=== PATIENT | male | born 1965 | race Caucasian/White ===

== ENCOUNTER 2020-02-14 19:03 | Emergency (ER) | payer OTHER, SELFPAY ==
[2020-02-14 19:19] VITALS: BP 143/107; PULSE 117; RESP 16; TEMP 36.9; O2SAT 97; BMI 34.2
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
[2020-02-14 19:59] VITALS: BP 143/107; PULSE 117; RESP 16; TEMP 36.9; O2SAT 97
== END 2020-02-14 20:01 | disposition home or self-care (01) ==
PROVIDERS: Emergency Provider Emergency Medicine
DX: S81.831A Puncture wound without foreign body, right lower leg, initial encounter (principal); S80.01XA Contusion of right knee, initial encounter; S80.02XA Contusion of left knee, initial encounter; W22.8XXA Striking against or struck by other objects, initial encounter; Y92.69 Other specified industrial and construction area as the place of occurrence of the external cause; Y99.0 Civilian activity done for income or pay; Z23 Encounter for immunization
CPT/HCPCS: 90471; 90715; 99201

== ENCOUNTER 2021-02-26 08:51 | Emergency (ER) | payer OTHER, SELFPAY ==
[2021-02-26 09:00] VITALS: BP 123/93; PULSE 91; RESP 20; TEMP 36.6; O2SAT 96; BMI 33.2
[2021-02-26 09:13] VITALS: BP 123/93; PULSE 91; RESP 19; TEMP 36.6
[2021-02-26 09:39] LABS: Influenza A, PCR Not Detected (NotDetected); Influenza B, PCR Not Detected (NotDetected)
--- NOTE | 2021-02-26 09:44 | HMH.EDUTC ---
[facility] [place] Clinical Impression: COVID-19 Disposition: Home, Self-Care Condition on Discharge: Good Instructions: DI for COVID-19 (Suspected or Confirmed ), Preventing the Spread of Coronavirus Discharge Instructions Additional Instructions: Drink plenty of fluids. Take tylenol or ibuprofen for pain or fever. Take the medications as directed. Follow up with your regular doctor. GO TO THE ER FOR ANY WORSENING SYMPTOMS Quarantine until you know the results of your covid-19 test. If it is positive, the health department should call you and give you further instructions about your length of Quarantine and other things. Notify your school or workplace of your results and follow their instructions regarding return to work/school. Prescriptions: Benzonatate [Tessalon Perle 100mg Cap] 100 mg PO TIDP PRN #30 cap PRN Reason: Cough Transmission Status: Received by [facility] #[id number] Ondansetron [Zofran 4mg ODT] 4 mg PO DAILYP PRN #12 tab PRN Reason: Nausea Transmission Status: Received by [facility] #[id number] Referrals: Provider,Referral, [Primary Care Provider] - Forms: Work/School Release Time of Disposition: 10:11 Medical Decision Making - Medical Records Medical records reviewed: No: I reviewed the patient's medical records. - Jose Inquiry Pt receiving controlled substance: No Vital Signs: 02/26/21 09:00 02/26/21 09:13 Temperature 98 F 98 F Temperature Source Oral Pulse Rate 91 H Pulse Rate [Left] 91 H Respiratory Rate 20 19 Blood Pressure 123/93 H Blood Pressure [Right Arm] 123/93 H Blood Pressure Mean [Right Arm] 103 02 Sat by Pulse Oximetry 96 - Lab Data Lab results reviewed: Yes: I reviewed the patient's lab results. Lab Results 02/26/21 09:03: SARS-CoV-2 (PCR) Detected A, Influenza A Untype (PCR) Not detected, Influenza Type B (PCR) Not detected [facility] [place] HPI - General Stated complaint: Covid test-Rapid (spoke with lab) Time Seen by Provider: 02/26/21 09:15 Mode of Arrival: Ambulatory Source of Information: Patient Limitations: No Limitations Description of Symptoms (Recalled from Triage Doc. by RN): pt c/o loss of taste, dry mouth, sore throat and body aches. HEENT Symptoms (Recalled from RN notes): Yes (loss of taste and sore throat) Resp Symptoms (Recalled from RN notes): No Skin Symptoms (Recalled from RN notes): No MS Symptoms (Recalled from RN notes): No Functional Status (Recalled from RN notes): body aches - History of Present Illness Provider Complaint: He states that for the past 2 days he has not been feeling well. His symptoms have progressively got worse since they began. Last night, he has chilling and felt like he had a fever. He has had a cough and sinus congestion. He has a scratchy sore throat. The symptom that he has the biggest concern about is that he has no sense of smell and his sense of taste is very reduced. He denies any shortness of breath and chest pain. - Related Data Previous Rx's Medication Instructions Recorded Ibuprofen [Ibuprofen 600mg 600 mg PO Q6HP PRN #30 tab 02/14/20 Tablet] Mupirocin [Bactroban 2% Ointment 1 applicatio TP TID 7 Days #1 tube 02/14/20 22gm tube] cephALEXin [Keflex 500mg Cap] 500 mg PO Q6H 10 Days #40 cap 02/14/20 Benzonatate [Tessalon Perle 100mg 100 mg PO TIDP PRN #30 cap 02/26/21 Cap] Ondansetron [Zofran 4mg ODT] 4 mg PO DAILYP PRN #12 tab 02/26/21 Allergies Allergy/AdvReac Type Severity Reaction Status Date / Time No Known Allergies Allergy Verified 02/14/20 19:29 - Worker's Comp Is this a Worker's Comp case?: No [facility] History - Hepatitis A Screen Drug use history?: No High risk sexual behaviors?: No History of sexually transmitted infection?: No Currently employed?: No Childcare worker?: No Do you have indoor plumbing?: Yes Do you have electricity?: Yes Attestation statement:: This patient has been screened for Hepatitis A r
[2021-02-26 10:04] LABS: Coronavirus 19, PCR Detected (NotDetected)
== END 2021-02-26 10:15 | disposition home or self-care (01) ==
PROVIDERS: Emergency Provider Nurse Practitioner Family
DX: U07.1 COVID-19 (principal)
CPT/HCPCS: 99202; G0463; U0003

== ENCOUNTER 2023-12-29 21:36 | Emergency (ER) | payer SELFPAY ==
[2023-12-29 21:42] VITALS: BP 125/74; PULSE 131; RESP 19; TEMP 36.8; O2SAT 98; BMI 35.7
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
[2023-12-29] MEDS: ACETAMINOPHEN 500MG TAB 1000 MG PO (22:02)
[2023-12-29] MEDS: IBUPROFEN 600 MG TABLET PO (22:05)
[2023-12-29 22:12] VITALS: BP 132/78; PULSE 73; RESP 15; TEMP 36.8; O2SAT 98
== END 2023-12-29 22:18 | disposition home or self-care (01) ==
PROVIDERS: Emergency Provider Emergency Medicine
DX: R10.2 Pelvic and perineal pain (principal); M79.652 Pain in left thigh; N50.811 Right testicular pain; Y04.2XXA Assault by strike against or bumped into by another person, initial encounter
CPT/HCPCS: 99283

== ENCOUNTER 2024-06-26 00:57 | Emergency (ER) | payer SELFPAY ==
[2024-06-26 00:58] VITALS: BP 148/87; PULSE 107; RESP 18; TEMP 36.6; O2SAT 96; BMI 37.2
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
--- NOTE | 2024-06-26 01:06 | XR_ITS ---
PROCEDURE INFORMATION: Exam: XR Right Foot Exam date and time: 06/26/2024 1:13 AM Age: 59 years old Clinical indication: Pain and injury or trauma; Fall; Work related; Blunt trauma; Heel and foot; Right; Foot and heel; Injury details: Jumped down off a fence, felt heel pop ; Additional info: Fall, heel pain TECHNIQUE: Imaging protocol: Radiologic exam of the right foot. Views: 3 or more views. COMPARISON: CR XR ANKLE RT MIN 3V 06/26/2024 1:13 AM FINDINGS: Bones/joints: Multiple views were obtained. The osseous structures appear intact with no evidence of acute fracture, dislocation, or malalignment. Degenerative changes are noted, consistent with age-related wear and tear. Joint spaces are generally preserved. No abnormal bone density or destructive lesions are noted. There is a hallux valgus deformity. Soft tissues: Soft tissue swelling is observed, warranting further clinical correlation. IMPRESSION: At the time of imaging, the skeletal radiograph demonstrates no acute osseous abnormalities but shows signs of degenerative changes and soft tissue swelling.
--- NOTE | 2024-06-26 01:06 | XR_ITS ---
PROCEDURE INFORMATION: Exam: XR Right Ankle Exam date and time: 06/26/2024 1:13 AM Age: 59 years old Clinical indication: Pain and injury or trauma; Fall; Work related; Blunt trauma; Ankle; Right; Injury details: Jump down from fence, felt pop; Additional info: Fall, heel pain TECHNIQUE: Imaging protocol: Radiologic exam of the right ankle. Views: 3 or more views. COMPARISON: CR XR ANKLE RT MIN 3V 06/26/2024 1:13 AM FINDINGS: Bones/joints: Multiple views were obtained. The osseous structures appear intact with no evidence of acute fracture, dislocation, or malalignment. Joint spaces are preserved. No abnormal bone density or destructive lesions are noted. Soft tissues: Soft tissue swelling is observed, and further clinical correlation is advised. IMPRESSION: At the time of imaging, the skeletal radiograph demonstrates no acute osseous abnormalities but does show soft tissue swelling.
[2024-06-26 01:30] VITALS: BP 125/82; PULSE 91; O2SAT 96
[2024-06-26 01:45] VITALS: BP 125/82; PULSE 89; O2SAT 97
[2024-06-26 02:17] VITALS: BP 132/88; PULSE 87; RESP 16; TEMP 36.6; O2SAT 96
[2024-06-26] MEDS: TET/DIPHTH/PERT-ADULT 0.5ML SYRINGE 0.5 ML IM (02:20)
== END 2024-06-26 02:19 | disposition home or self-care (01) ==
PROVIDERS: Emergency Provider Emergency Medicine
DX: S61.432A Puncture wound without foreign body of left hand, initial encounter (principal); M79.671 Pain in right foot; M79.642 Pain in left hand; Z23 Encounter for immunization; X50.9XXA Other and unspecified overexertion or strenuous movements or postures, initial encounter; Y93.89 Activity, other specified; Y92.89 Other specified places as the place of occurrence of the external cause
CPT/HCPCS: 73610; 73630; 90471; 90715; 99283

== ENCOUNTER 2024-09-05 22:07 | Emergency (ER) | payer OTHER, SELFPAY ==
--- NOTE | 2024-09-05 22:11 | ECG_ITS ---
APPROVED REPORT Exam: Resting ECG HR:102 bpm ECG Measurements Heart Rate [address] 174 P 49 QRSd 89 QRS 64 QT 309 T -26 QTc 367 Conclusion SINUS TACHYCARDIA NONSPECIFIC T-WAVE ABNORMALITY ABNORMAL ECG UNCONFIRMED REPORT Electronically signed by : PHU SALES, 09/06/2024 02:22:56
[2024-09-05 22:15] VITALS: BP 144/85; PULSE 110; RESP 28; TEMP 36.9; O2SAT 98; BMI 37.2
--- NOTE | 2024-09-05 22:15 | CT_ITS ---
PROCEDURE INFORMATION: Exam: CTA Head With Contrast, Arteriography Exam date and time: 09/05/2024 10:26 PM Age: 59 years old Clinical indication: Stroke-like symptoms; Speech disturbance; Additional info: Chest pressure, difficulty speaking TECHNIQUE: Imaging protocol: Computed tomographic angiography of the head with contrast. Exam focused on the arteries. 3D rendering (Not supervised by radiologist): MIP and/or 3D reconstructed images were created by the technologist. Radiation optimization: All CT scans at this facility use at least one of these dose optimization techniques: automated exposure control; mA and/or kV adjustment per patient size (includes targeted exams where dose is matched to clinical indication); or iterative reconstruction. Contrast material: ISOVUE; Contrast volume: 80 ml; Contrast route: INTRAVENOUS (IV); COMPARISON: CT HEAD/BRAIN WO CON 09/05/2024 10:22 PM FINDINGS: ANTERIOR CIRCULATION: Right internal carotid artery: Intracranial segment is patent with no significant stenosis. No aneurysm. Right middle cerebral artery: No occlusion or significant stenosis. No aneurysm. Right anterior cerebral artery: No occlusion or significant stenosis. No aneurysm. Left internal carotid artery: Intracranial segment is patent with no significant stenosis. No aneurysm. Left middle cerebral artery: No occlusion or significant stenosis. No aneurysm. Left anterior cerebral artery: No occlusion or significant stenosis. No aneurysm. POSTERIOR CIRCULATION: Right vertebral artery: No occlusion or significant stenosis. No aneurysm. Left vertebral artery: No occlusion or significant stenosis. No aneurysm. Basilar artery: No occlusion or significant stenosis. No aneurysm. Right posterior cerebral artery: No occlusion or significant stenosis. No aneurysm. Left posterior cerebral artery: No occlusion or significant stenosis. No aneurysm. Brain: No definite mass, mass effect, or midline shift. Cerebral ventricles: No ventriculomegaly. Bones/joints: Unremarkable. No acute fracture. Soft tissues: Unremarkable. IMPRESSION: No evidence for large vessel occlusion.
--- NOTE | 2024-09-05 22:15 | CT_ITS ---
PROCEDURE INFORMATION: Exam: CTA Neck With Contrast Exam date and time: 09/05/2024 10:26 PM Age: 59 years old Clinical indication: Stroke-like symptoms; Speech disturbance; Additional info: Chest pressure, difficulty speaking TECHNIQUE: Imaging protocol: Computed tomographic angiography of the neck with contrast. Exam focused on the cervical segments of the vasculature. 3D rendering (Not supervised by radiologist): MIP and/or 3D reconstructed images were created by the technologist. Radiation optimization: All CT scans at this facility use at least one of these dose optimization techniques: automated exposure control; mA and/or kV adjustment per patient size (includes targeted exams where dose is matched to clinical indication); or iterative reconstruction. Contrast material: ISOVUE; Contrast volume: 80 ml; Contrast route: INTRAVENOUS (IV); COMPARISON: CT ANGIO NECK 09/05/2024 10:26 PM FINDINGS: Right common carotid artery: No stenosis. No dissection or occlusion. Right internal carotid artery: No stenosis of the extracranial segment. No dissection or occlusion. Right external carotid artery: No occlusion or stenosis of the origin. Left common carotid artery: No stenosis. No dissection or occlusion. Left internal carotid artery: No stenosis of the extracranial segment. No dissection or occlusion. Left external carotid artery: No occlusion or stenosis of the origin. Right vertebral artery: No stenosis. No dissection or occlusion. Left vertebral artery: No stenosis. No dissection or occlusion. Soft tissues: Normal. No significant soft tissue swelling. Bones/joints: No acute fracture. IMPRESSION: No evidence for occlusion, stenosis or dissection of the cervical vessels. REFERENCES: NASCET CRITERIA. The degree of stenosis in the cervical segment of the internal carotid artery is based on NASCET criteria. Normal is no stenosis. Mild is less than 50% stenosis. Moderate is 50-69% stenosis. Severe is 70% to 99% stenosis. Total occlusion is no detectable patent lumen.
--- NOTE | 2024-09-05 22:15 | CT_ITS ---
PROCEDURE INFORMATION: Exam: CTA Chest With Contrast Exam date and time: 09/05/2024 10:30 PM Age: 59 years old Clinical indication: Pain; Chest pressure; Additional info: Chest pressure, difficulty speaking, tachycardia TECHNIQUE: Imaging protocol: Computed tomographic angiography of the chest with contrast. Exam focused on the arteries. 3D rendering (Not supervised by radiologist): MIP and/or 3D reconstructed images were created by the technologist. Radiation optimization: All CT scans at this facility use at least one of these dose optimization techniques: automated exposure control; mA and/or kV adjustment per patient size (includes targeted exams where dose is matched to clinical indication); or iterative reconstruction. Contrast material: ISOVUE; Contrast volume: 80 ml; Contrast route: INTRAVENOUS (IV); COMPARISON: CT ANGIO NECK 09/05/2024 10:26 PM FINDINGS: Pulmonary arteries: Normal. No pulmonary emboli. Aorta: Unremarkable. No aortic aneurysm. No aortic dissection. Lungs: Benign right upper lobar calcified granuloma. No consolidation. No masses. Pleural spaces: Unremarkable. No pneumothorax. No pleural effusion. Heart: Unremarkable. No cardiomegaly. No pericardial effusion. Lymph nodes: Unremarkable. No enlarged lymph nodes. Liver: Fatty infiltration. Pancreas: Pancreatic atrophy with extensive fatty replacement of parenchyma. No ductal dilatation. Bones/joints: Unremarkable. No acute fracture. Soft tissues: Unremarkable. IMPRESSION: 1. Unremarkable study. 2. Incidental fatty liver infiltration and pancreatic atrophy.
--- NOTE | 2024-09-05 22:15 | CT_ITS ---
PROCEDURE INFORMATION: Exam: CT Head Without Contrast Exam date and time: 09/05/2024 10:22 PM Age: 59 years old Clinical indication: Stroke-like symptoms; Speech disturbance; Additional info: Chest pressure, difficulty speaking TECHNIQUE: Imaging protocol: Computed tomography of the head without contrast. Radiation optimization: All CT scans at this facility use at least one of these dose optimization techniques: automated exposure control; mA and/or kV adjustment per patient size (includes targeted exams where dose is matched to clinical indication); or iterative reconstruction. Other technique: STROKE PROTOCOL was implemented. COMPARISON: CT HEAD/BRAIN WO CON 09/05/2024 10:22 PM FINDINGS: Brain: Small old lacunar infarct right basal ganglia. No hemorrhage. Unremarkable white matter. No mass effect. Cerebral ventricles: No ventriculomegaly. Pituitary gland and sella: Negative Paranasal sinuses: Visualized sinuses are unremarkable. No fluid levels. Mastoid air cells: Visualized mastoid air cells are well aerated. Orbital cavities: Negative. Bones: Unremarkable. No acute fracture. Soft tissues: Unremarkable. Vasculature: Intracranial vascular calcifications. Intrinsically dense cerebral vessels; difficult to evaluate. IMPRESSION: 1. No evidence for intracranial hemorrhage, mass lesions or acute stroke. 2. Intracranial vascular calcifications. 3. Intrinsically dense triple-vessel; difficult to evaluate. 4. Small old lacunar infarct right basal ganglia. ASSESSMENT: ASPECTS ([place] Stroke Program Early CT Score) is 10.
--- NOTE | 2024-09-05 22:19 | PC.NURSE ---
Pt has NIH of 0 Skin pink warm and dry Resp full and easy Speech clear and appropriate. Lungs clear to anterior auscultation.
[2024-09-05] MEDS: ASPIRIN 81MG CHEWABLE TABLET 324 MG PO (22:21)
[2024-09-05 22:25] LABS: Lactate Venous 2.6 mmol/L (0.4-2.0); VBG Base Excess 2.6 mmol/L (-2.4-2.3); VBG HCO3 27.1 mmol/L (23-30); VBG Oxygen Saturation 66.2 % (50-70); VBG PCO2 43.4 mmol/L (35-51); VBG PH 7.41 mmol/L (7.31-7.41); VBG PO2 33.2 mmol/L (28-40); VBG Total CO2 28.5 mmol/L (23-27)
[2024-09-05 22:25] LABS: Basophils % 0.4 % (0.1-2.0); Eosinophils # 0.2 K/mm3 (0.0-0.4); Eosinophils % 2.7 % (0.1-12.0); Hematocrit 40.9 % (42.0-52.0); Hemoglobin 13.9 g/dL (14.1-18.0); Lymphocytes # 2.8 K/mm3 (0.7-4.5); Lymphocytes % 40.7 % (10-50); Mean Corpuscular Hemoglobin 29.4 pg (27.0-31.2); Mean Corpuscular Volume 86.5 fl (80-94); Mean Platelet Volume 10.4 fl (7.4-10.4); Monocytes # 0.5 K/mm3 (0.1-1.0); Monocytes % 6.7 % (1.7-9.3); Neutrophils # 3.3 K/mm3 (1.8-7.8); Neutrophils % 49.4 % (37.0-80.0); Platelet Count 250 K/mm3 (142-424); Red Blood Count 4.73 M/mm3 (4.60-6.20); Red Cell Distribution Width 12.9 % (11.5-17.5); White Blood Count 6.8 K/mm3 (4.8-10.8)
[2024-09-05 22:29] LABS: Albumin Level 4.7 g/dl (3.5-5.0); Chloride 105 mmol/L (98-107); Potassium 4.4 mmoL/L (3.5-5.1); Sodium 139 mmol/L (136-145)
[2024-09-05 22:32] LABS: Alanine Aminotransferase 51 U/L (12-78); Albumin/Globulin Ratio 1.7 (1.1-1.8); Alkaline Phosphatase 76 U/L (38-126); Anion Gap 10.4 mEq/L (5-15); Aspartate Amino Transferase 47 U/L (17-59); Bilirubin,Total 1.2 mg/dl (0.2-1.3); Blood Urea Nitrogen 16 mg/dl (9-20); Carbon Dioxide 28 mmol/L (22.0-30.0); Creatinine Clearance Estimated 125 mL/min (50-200); Estimated Glomerular Filt Rate 76 ml/min (>60); GFR (African American) 93 ML/MIN (>60); Globulin 2.7 g/dL (1.3-3.2); Lipase 27 U/L (23-300); Total Protein,Serum 7.4 g/dl (6.3-8.2)
[2024-09-05 22:33] LABS: Calcium 9.2 mg/dl (8.4-10.2); Glucose 120 mg/dl (74-100)
--- NOTE | 2024-09-05 22:37 | ED_ITS ---
Discharge Plan Disposition Patient Disposition: Home, Self-Care Prescriptions Prescriptions: No Action cephalexin 500 MG capsule 500 mg PO Q6H 10 Days Qty: 40 0RF mupirocin 22 GM ointment 1 applicatio TP TID 7 Days Qty: 1 0RF ibuprofen 600 MG tablet 600 mg PO Q6HP PRN (Reason: Mild Pain) Qty: 30 0RF benzonatate 100 MG capsule 100 mg PO TIDP PRN (Reason: Cough) Qty: 30 0RF ondansetron 4 MG tablet,disintegrating 4 mg PO DAILYP PRN (Reason: Nausea) Qty: 12 0RF Referrals Follow up/Referrals: Rica Pop, EMILEE [Referring] - See instructions Activity Restrictions/Add. Instructions Additional Instructions/Restrictions: Please follow-up with your primary care provider. Please return to the emergency department if you develop any new or worsening symptoms or become concerned for your health. Clinical Impressions Clinical Impression: Chest pain, Encounter for medical assessment Print Language Print Language: [place] Citizen Discharge ED Provider: Miguel Hopper HPI <Carmelo Kennedy MD - Last Filed: 09/05/24 23:38> General Chief Complaint: Chest Pain Stated Complaint: cardiac event, possible stroke Time Seen by Provider: 09/05/24 22:14 Mode of Arrival: EMS Source of Information: Patient Description of Symptoms (Recalled from ER Triage Doc. by RN): Pt states he had a sudden flushed feeling that started at 2130 Now feels short of air. Pt hyperventilating. History of Present Illness HPI narrative: Please note that above description of symptoms, in this electronic medical record under categorization of recalled from ER triage doctor by RN are reflective of an initial nursing assessment, however, is not reflective of my full history and physical exam that was personally taken and clarified. Consequentially, this preceding description of symptoms, which may include the patient's categorized chief complaint in the EMR, do not reflect my personal clinical impression, and the ultimate description of history of present illness and patient stated complaints should be deferred to this section of the note. Unless stated otherwise or congruent with this section of the note, additional signs, symptoms, or incongruence should be interpreted as inaccurate with my clinical impression. Related Data Previous Rx's ?Medication ?Instructions ?Recorded cephalexin 500 mg capsule 500 mg PO Q6H 10 days #40 caps 02/14/20 ibuprofen 600 mg tablet 600 mg PO Q6HP PRN Mild Pain #30 02/14/20 tabs mupirocin 2 % topical ointment 1 applicatio TP TID 7 days #1 tube 02/14/20 benzonatate 100 mg capsule 100 mg PO TIDP PRN Cough #30 caps 02/26/21 ondansetron 4 mg disintegrating 4 mg PO DAILYP PRN Nausea #12 tabs 02/26/21 tablet Allergies Allergy/AdvReac Type Severity Reaction Status Date / Time No Known Allergies Allergy Verified 02/14/20 19:29 [facility] <Carmelo Kennedy MD - Last Filed: 09/05/24 23:38> [facility] Disclaimer: The information contained in this section may have been updated after the patient was seen, as this information can be updated by other users. Social History Smoking Status: Never smoker alcohol intake: never current occupational status: employed Travel in the last 8 weeks: None Have you lived/traveled outside [place] in past 30 days?: No Contact w/someone who lives/traveled outside US past 30 days?: No Exposure to someone with infectious disease in past 14 days?: No Do you have a fever (greater than 100.4 F or 38 C)?: No Have you tested positive for COVID-19: No Exposed to someone with COVID-19 in past 14 days?: No Do you have a sore throat?: No Do you have a cough?: No Do you have any weakness?: No Do you have any diarrhea?: No Are you experiencing any unusual bleeding?: No Do you have any muscle aches/pain?: No Do you have any abdominal pain?: No Are you experiencing loss of taste or smell?: No <Carmelo Kennedy MD - Last Filed: 09/05/24 23:38> ROS Obtained: Yes All systems reviewed & no additional complaints except as documented Physical Exam <Carmelo Kennedy MD - Last Filed: 09/05/24 23:38> General General appearance: alert Neck Neck exam: Present trachea midline Chest Chest inspection: Present normal inspection and symmetric chest wall rise Respiratory Respiratory exam: Present normal lung sounds bilaterally; Absent respiratory distress, wheezes, stridor, accessory muscle use or prolonged expiratory phase Cardiovascular Cardiovascular exam: Present regular rate, normal rhythm and other (Pulses equal and symmetric in upper and lower extremities) Extremities Exam Extremities exam: Absent edema Neurological Exam Neurological exam: Present alert, oriented X3 and CN II-XII intact Skin Skin exam: Present warm and dry; Absent cyanosis, diaphoresis or pallor HEART Score <Carmelo Kennedy MD - Last Filed: 09/05/24 23:38> HEART Score HEART Score assessment performed?: Yes History (anamnesis): Moderately suspicious ECG: Non-specific disturbance Age: 45-65 years Risk factors: 1-2 risk factors Troponin: </= normal limit HEART Score: 4 <Miguel Hopper MD - Last Filed: 09/06/24 01:45> HEART Score HEART Score: 4 Critical Care <Carmelo Kennedy MD - Last Filed: 09/05/24 23:38> Critical Care Time Critical Care Time: No Medical Decision Making <Carmelo Kennedy MD - Last Filed: 09/05/24 23:38> Medical Records Medical records reviewed: Yes I reviewed the patient's medical records. Jose Inquiry Pt receiving controlled substance: No Jose was queried for this patient: No Vital Signs Vital Signs: 09/05/24 22:15 09/05/24 23:00 09/05/24 23:31 Temperature 98.4 F Temperature Source Oral Pulse Rate Pulse Rate [Right Brachial] 110 H Respiratory Rate 28 H Blood Pressure 121/71 127/78 Blood Pressure [Right Arm] 144/85 H Blood Pressure Mean 84 94 Blood Pressure Mean [Right Arm] 104 Blood Pressure Source [Right Arm] Automatic Cuff Blood Pressure Position [Right Arm] Sitting 02 Sat by Pulse Oximetry 98 Oxygen Delivery Method Room Air 09/06/24 00:00 09/06/24 00:30 Temperature Temperature Source Pulse Rate 96 H 101 H Pulse Rate [Right Brachial] Respiratory Rate 18 22 Blood Pressure 124/77 124/77 Blood Pressure [Right Arm] Blood Pressure Mean 91 91 Blood Pressure Mean [Right Arm] Blood Pressure Source [Right Arm] Blood Pressure Position [Right Arm] 02 Sat by Pulse Oximetry 95 96 Oxygen Delivery Method Lab Data Labs: Lab Results 09/05/24 22:14: WBC 6.8, RBC 4.73, Hgb 13.9 L, Hct 40.9 L, MCV 86.5, MCH 29.4, MCHC 34.0, RDW 12.9, Plt Count 250, MPV 10.4, Neut % (Auto) 49.4, Lymph % (Auto) 40.7, Dixon % (Auto) 6.7, Eos % (Auto) 2.7, Baso % (Auto) 0.4, Neut # (Auto) 3.3, Lymph # (Auto) 2.8, Dixon # (Auto) 0.5, Eos # (Auto) 0.2, Baso # (Auto) 0.0, PT 10.8, INR 0.96, APTT 23.1, Sodium 139, Potassium 4.4, Chloride 105, Carbon Dioxide 28, Anion Gap 10.4, BUN 16, Creatinine 1.00, Estimated Creat Clear 125, Estimated GFR 76, Est GFR ( Amer) 93, Glucose 120 H, Calcium 9.2, Magnesium 2.2, Total Bilirubin 1.2, AST 47, ALT 51, Alkaline Phosphatase 76, Troponin I < 0.01, NT-Pro-B Natriuret Pep < 20.0, Total Protein 7.4, Albumin 4.7, Globulin 2.7, Albumin/Globulin Ratio 1.7, Lipase 27, HCV Ab SHERIE w/Rflx PCR Qn Negative, HIV Ag/Ab Combo Qual Negative 09/05/24 22:16: VBG pH 7.41, VBG pCO2 43.4, VBG pO2 33.2, VBG HCO3 27.1, VBG Total CO2 28.5 H, VBG O2 Saturation 66.2, VBG Base Excess 2.6 H, VBG Lactic Acid 2.6 H 09/06/24 01:05: Troponin I < 0.01 09/05/24 22:14 09/05/24 22:14 Response Orders (Tests/Meds): ED MEDICATIONS Generic Name Dose Route Start Last Admin Trade Name Freq PRN Reason Stop Dose Admin Sodium Chloride 10 ml 09/05/24 22:43 Sodium Chloride 0.9% 10ml Vial IV 10/05/24 22:42 NEEDED PRN to Dilute Lorazepam inj Discontinued Medications Generic Name Dose Route Start Last Admin Trade Name Freq PRN Reason Stop Dose Admin Aspirin 324 mg 09/05/24 22:14 09/05/24 22:21 Aspirin 81mg Chewable Tablet PO 09/05/24 22:15 324 mg ONCE ONE Administration Iopamidol 75 ml 09/05/24 22:40 09/05/24 22:43 Iopamidol-370 (76%);100ml Bottle IV 09/05/24 22:41 75 ml ONCE ONE Administration Iopamidol 75 ml 09/05/24 22:40 09/05/24 22:43 Iopamidol-370 (76%);100ml Bottle IV 09/05/24 22:41 75 ml ONCE ONE Administration Lorazepam 2 mg 09/05/24 22:43 09/05/24 22:47 Lorazepam 2mg/Ml Vial IV 09/05/24 22:44 2 mg ONCE ONE Administration Sodium Chloride 50 ml 09/05/24 22:40 09/05/24 22:42 0.9 % Sodium Chloride 50 Ml Vial IV 09/05/24 22:41 50 ml ONCE ONE Administration Sodium Chloride 10 ml 09/05/24 22:40 09/05/24 22:43 Sodium Chloride 0.9% 10ml Syr (Rad Only) IV 09/05/24 22:41 10 ml ONCE ONE Administration Sodium Chloride 50 ml 09/05/24 22:40 09/05/24 22:43 0.9 % Sodium Chloride 50 Ml Vial IV 09/05/24 22:41 50 ml ONCE ONE Administration ORDERS Category Date Time Status CT angio head Stat Cat Scan 09/05/24 22:[address] angio neck Stat Cat Scan 09/05/24 22:[address] head/brain wo con Stat Cat Scan 09/05/24 22:15 Completed CTA Chest [CT angio chest - dissection] Stat Cat Scan 09/05/24 22:15 Completed Complete Blood Count Auto Diff Stat Lab 09/05/24 22:14 Completed Comprehensive Metabolic Panel Stat Lab 09/05/24 22:14 Completed HIV Combo Routine Lab 09/05/24 22:14 Completed Hepatitis C Ab Qual. W/ RFX Routine Lab 09/05/24 22:14 Completed Lipase Stat Lab 09/05/24 22:14 Completed Magnesium Stat Lab 09/05/24 22:14 Completed NT Pro Brain Natriuretic Pep. Stat Lab 09/05/24 22:14 Completed PT INR [Prothrombin Time INR] Stat Lab 09/05/24 22:14 Completed PTT [Activated Partial Thrombo Time] Stat Lab 09/05/24 22:14 Completed Troponin I Q3H Lab 09/06/24 01:05 Completed Troponin I Q3H Lab 09/06/24 04:30 Ordered Troponin I Stat Lab 09/05/24 22:14 Completed Venous Blood Gas Stat RT 09/05/24 22:16 Completed MDM Narrative Medical Decision Narrative: This is a 59-year-old male history of hypertension presenting with multiple complaints. Patient states that about 30 minutes prior to arrival, he was sitting at his desk when he started feeling flushing feeling, and had a brief period where he was having difficulty speaking. No other acute abnormalities, currently asymptomatic. History was obtained via conversation with patient and EMS. On arrival, patient hemodynamically stable, alert, oriented x4, appropriate, GCS 15, moving all extremities spontaneously, pupils equal and reactive to light. Full physical exam performed and significant for appears anxious, mildly diaphoretic. Lungs are clear, cardiac exam tachycardic otherwise normal. No lower extremity edema. Pulses equal and symmetric in upper and lower extremities. Speaking full sentences. NIHSS 0 and neurologically intact. Differential includes metabolic abnormality, endocrinologic abnormality, ACS, [place], dissection, embolic stroke, hemorrhagic stroke, PE, pneumothorax, among others. Patient was given aspirin, fluids for symptomatic management and correction of underlying abnormalities. Patient placed on continuous cardiac monitoring and continuous pulse ox with initial blood pressure 144/85, heart rate 110, saturation 98% on room air. Independent interpretation of EKG shows sinus tachycardia 102 bpm with KS 174, QRS 89, QTc 367. He does have T wave inversions in 2 3 and aVF with no reciprocal elevations. T wave inversions in V3 through V6 as well. Stroke alert was initiated. Independent interpretation of CT head without contrast, no intracranial hemorrhage. No acute intracranial abnormality. CT angiogram of the head and neck without obvious acute vascular stenosis. Shortly after CTs, having mild chest pain. Repeat EKG obtained and similar to the first. Sinus rhythm 93 bpm with KS 185, QRS 93, QTc 425. Nonspecific T wave abnormality in the precordial and inferior leads with no reciprocal elevation. Given concern for anxiety, patient given 2 mg IV Ativan. Workup independently interpreted and significant for nonactionable CBC or chemistry. Initially negative troponin. BNP negative, lipase negative. Patient placed in observation at 10:30 PM to rule out evolving [place] with delta troponins and clinically monitor. On reevaluation, patient feeling much better after 2 of Ativan and actually has no acute complaints. Results were relayed to patient and family. Prior to final labs and disposition, care handed off to oncoming physician. It Applications Analyst disclaimer Much of this encounter note is an electronic regrader spoken language to printed text. Electronic regrader of the spoken language may permit errors. Although I have reviewed the note, some errors may still exist. <Miguel Hopper MD - Last Filed: 09/06/24 01:45> Vital Signs Vital Signs: 09/05/24 22:15 09/05/24 23:00 09/05/24 23:31 Temperature 98.4 F Temperature Source Oral Pulse Rate Pulse Rate [Right Brachial] 110 H Respiratory Rate 28 H Blood Pressure 121/71 127/78 Blood Pressure [Right Arm] 144/85 H Blood Pressure Mean 84 94 Blood Pressure Mean [Right Arm] 104 Blood Pressure Source [Right Arm] Automatic Cuff Blood Pressure Position [Right Arm] Sitting 02 Sat by Pulse Oximetry 98 Oxygen Delivery Method Room Air 09/06/24 00:00 09/06/24 00:30 Temperature Temperature Source Pulse Rate 96 H 101 H Pulse Rate [Right Brachial] Respiratory Rate 18 22 Blood Pressure 124/77 124/77 Blood Pressure [Right Arm] Blood Pressure Mean 91 91 Blood Pressure Mean [Right Arm] Blood Pressure Source [Right Arm] Blood Pressure Position [Right Arm] 02 Sat by Pulse Oximetry 95 96 Oxygen Delivery Method Lab Data Labs: Lab Results 09/05/24 22:14: WBC 6.8, RBC 4.73, Hgb 13.9 L, Hct 40.9 L, MCV 86.5, MCH 29.4, MCHC 34.0, RDW 12.9, Plt Count 250, MPV 10.4, Neut % (Auto) 49.4, Lymph % (Auto) 40.7, Dixon % (Auto) 6.7, Eos % (Auto) 2.7, Baso % (Auto) 0.4, Neut # (Auto) 3.3, Lymph # (Auto) 2.8, Dixon # (Auto) 0.5, Eos # (Auto) 0.2, Baso # (Auto) 0.0, PT 10.8, INR 0.96, APTT 23.1, Sodium 139, Potassium 4.4, Chloride 105, Carbon Dioxide 28, Anion Gap 10.4, BUN 16, Creatinine 1.00, Estimated Creat Clear 125, Estimated GFR 76, Est GFR ( Amer) 93, Glucose 120 H, Calcium 9.2, Magnesium 2.2, Total Bilirubin 1.2, AST 47, ALT 51, Alkaline Phosphatase 76, Troponin I < 0.01, NT-Pro-B Natriuret Pep < 20.0, Total Protein 7.4, Albumin 4.7, Globulin 2.7, Albumin/Globulin Ratio 1.7, Lipase 27, HCV Ab SHERIE w/Rflx PCR Qn Negative, HIV Ag/Ab Combo Qual Negative 09/05/24 22:16: VBG pH 7.41, VBG pCO2 43.4, VBG pO2 33.2, VBG HCO3 27.1, VBG Total CO2 28.5 H, VBG O2 Saturation 66.2, VBG Base Excess 2.6 H, VBG Lactic Acid 2.6 H 09/06/24 01:05: Troponin I < 0.01 Response Orders (Tests/Meds): ED MEDICATIONS Generic Name Dose Route Start Last Admin Trade Name Freq PRN Reason Stop Dose Admin Sodium Chloride 10 ml 09/05/24 22:43 Sodium Chloride 0.9% 10ml Vial IV 10/05/24 22:42 NEEDED PRN to Dilute Lorazepam inj Discontinued Medications Generic Name Dose Route Start Last Admin Trade Name Freq PRN Reason Stop Dose Admin Aspirin 324 mg 09/05/24 22:14 09/05/24 22:21 Aspirin 81mg Chewable Tablet PO 09/05/24 22:15 324 mg ONCE ONE Administration Iopamidol 75 ml 09/05/24 22:40 09/05/24 22:43 Iopamidol-370 (76%);100ml Bottle IV 09/05/24 22:41 75 ml ONCE ONE Administration Iopamidol 75 ml 09/05/24 22:40 09/05/24 22:43 Iopamidol-370 (76%);100ml Bottle IV 09/05/24 22:41 75 ml ONCE ONE Administration Lorazepam 2 mg 09/05/24 22:43 09/05/24 22:47 Lorazepam 2mg/Ml Vial IV 09/05/24 22:44 2 mg ONCE ONE Administration Sodium Chloride 50 ml 09/05/24 22:40 09/05/24 22:42 0.9 % Sodium Chloride 50 Ml Vial IV 09/05/24 22:41 50 ml ONCE ONE Administration Sodium Chloride 10 ml 09/05/24 22:40 09/05/24 22:43 Sodium Chloride 0.9% 10ml Syr (Rad Only) IV 09/05/24 22:41 10 ml ONCE ONE Administration Sodium Chloride 50 ml 09/05/24 22:40 09/05/24 22:43 0.9 % Sodium Chloride 50 Ml Vial IV 09/05/24 22:41 50 ml ONCE ONE Administration ORDERS Category Date Time Status CT angio head Stat Cat Scan 09/05/24 22:[address] angio neck Stat Cat Scan 09/05/24 22:[address] head/brain wo con Stat Cat Scan 09/05/24 22:15 Completed CTA Chest [CT angio chest - dissection] Stat Cat Scan 09/05/24 22:15 Completed Complete Blood Count Auto Diff Stat Lab 09/05/24 22:14 Completed Comprehensive Metabolic Panel Stat Lab 09/05/24 22:14 Completed HIV Combo Routine Lab 09/05/24 22:14 Completed Hepatitis C Ab Qual. W/ RFX Routine Lab 09/05/24 22:14 Completed Lipase Stat Lab 09/05/24 22:14 Completed Magnesium Stat Lab 09/05/24 22:14 Completed NT Pro Brain Natriuretic Pep. Stat Lab 09/05/24 22:14 Completed PT INR [Prothrombin Time INR] Stat Lab 09/05/24 22:14 Completed PTT [Activated Partial Thrombo Time] Stat Lab 09/05/24 22:14 Completed Troponin I Q3H Lab 09/06/24 01:05 Completed Troponin I Q3H Lab 09/06/24 04:30 Ordered Troponin I Stat Lab 09/05/24 22:14 Completed Venous Blood Gas Stat RT 09/05/24 22:16 Completed MDM Narrative Medical Decision Narrative: This is a 59-year-old male history of hypertension presenting with multiple complaints. Patient states that about 30 minutes prior to arrival, he was sitting at his desk when he started feeling flushing feeling, and had a brief period where he was having difficulty speaking. No other acute abnormalities, currently asymptomatic. History was obtained via conversation with patient and EMS. On arrival, patient hemodynamically stable, alert, oriented x4, appropriate, GCS 15, moving all extremities spontaneously, pupils equal and reactive to light. Full physical exam performed and significant for appears anxious, mildly diaphoretic. Lungs are clear, cardiac exam tachycardic otherwise normal. No lower extremity edema. Pulses equal and symmetric in upper and lower extremities. Speaking full sentences. NIHSS 0 and neurologically intact. Differential includes metabolic abnormality, endocrinologic abnormality, ACS, [place], dissection, embolic stroke, hemorrhagic stroke, PE, pneumothorax, among others. Patient was given aspirin, fluids for symptomatic management and correction of underlying abnormalities. Patient placed on continuous cardiac monitoring and continuous pulse ox with initial blood pressure 144/85, heart rate 110, saturation 98% on room air. Independent interpretation of EKG shows sinus tachycardia 102 bpm with KS 174, QRS 89, QTc 367. He does have T wave inversions in 2 3 and aVF with no reciprocal elevations. T wave inversions in V3 through V6 as well. Stroke alert was initiated. Independent interpretation of CT head without contrast, no intracranial hemorrhage. No acute intracranial abnormality. CT angiogram of the head and neck without obvious acute vascular stenosis. Shortly after CTs, having mild chest pain. Repeat EKG obtained and similar to the first. Sinus rhythm 93 bpm with KS 185, QRS 93, QTc 425. Nonspecific T wave abnormality in the precordial and inferior leads with no reciprocal elevation. Given concern for anxiety, patient given 2 mg IV Ativan. Workup independently interpreted and significant for nonactionable CBC or chemistry. Initially negative troponin. BNP negative, lipase negative. Patient placed in observation at 10:30 PM to rule out evolving [place] with delta troponins and clinically monitor. On reevaluation, patient feeling much better after 2 of Ativan and actually has no acute complaints. Results were relayed to patient and family. Prior to final labs and disposition, care handed off to oncoming physician. It Applications Analyst disclaimer Much of this encounter note is an electronic regrader spoken language to printed text. Electronic regrader of the spoken language may permit errors. Although I have reviewed the note, some errors may still exist. Ward PASTOR: I assumed care of the patient at the time of handoff from the prior provider. 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 On my independent interpretation, CT imaging did not show any evidence of PE or acute aortic pathology. Laboratory results interpreted me and show negative second troponin. Interactive discussion was had with patient regarding presentation and workup. No evidence of emergent pathology at this time. Given this patient was deemed appropriate for discharge with outpatient management. Patient was discharged in stable condition with return precautions.
--- NOTE | 2024-09-05 22:40 | ECG_ITS ---
APPROVED REPORT Exam: Resting ECG HR:93 bpm ECG Measurements Heart Rate 93 AXES ID 185 P 57 QRSd 93 QRS 66 QT 374 T 12 QTc 425 Conclusion SINUS RHYTHM NONSPECIFIC T-WAVE ABNORMALITY BORDERLINE ECG No STEMI Electronically signed by : YANG TRAMMELL, 09/07/2024 06:24:21
[2024-09-05 22:41] LABS: Magnesium 2.2 mg/dl (1.6-2.3)
[2024-09-05 22:42] LABS: Activated Partial Thrombo Time 23.1 seconds (22.8-30.6)
[2024-09-05] MEDS: 0.9 % SODIUM CHLORIDE 50 ML VIAL IV ×2 (22:42→22:43)
[2024-09-05] MEDS: SODIUM CHLORIDE 0.9% 10ML SYR (RAD ONLY) 10 ML IV (22:43)
[2024-09-05] MEDS: IOPAMIDOL-370 (76%);100ML BOTTLE 75 ML IV ×2 (22:43)
[2024-09-05 22:45] LABS: INR 0.96 (0.9-1.1); Prothrombin Time 10.8 seconds (10.1-12.5)
[2024-09-05] MEDS: LORazepam 2MG/ML VIAL 2 MG IV (22:47)
[2024-09-05 22:52] LABS: NT Pro Brain Natriuretic Pep. < 20.0 pg/mL (0-125)
[2024-09-05 22:56] LABS: Troponin I < 0.01 ng/ml (0.00-0.034)
[2024-09-05 23:00] VITALS: BP 121/71
[2024-09-05 23:31] VITALS: BP 127/78
[2024-09-05 23:36] LABS: HIV Combo NEGATIVE (Negative)
[2024-09-05 23:44] LABS: Hepatitis C Ab Qual. W/ RFX NEGATIVE (Negative)
[2024-09-06] VITALS: BP 124/77; PULSE 96; RESP 18; O2SAT 95
[2024-09-06 00:30] VITALS: BP 124/77; PULSE 101; RESP 22; O2SAT 96
--- NOTE | 2024-09-06 01:05 | PC.NURSE ---
REpeat troponin drawn and sent
[2024-09-06 01:39] LABS: Troponin I < 0.01 ng/ml (0.00-0.034)
[2024-09-06 01:48] VITALS: BP 127/80; PULSE 100; RESP 20; TEMP 36.8; O2SAT 96
== END 2024-09-06 01:52 | disposition home or self-care (01) ==
PROVIDERS: Emergency Medicine; Emergency Provider Emergency Medicine
DX: R07.9 Chest pain, unspecified (principal); R06.02 Shortness of breath; R23.2 Flushing; R47.89 Other speech disturbances
CPT/HCPCS: 70450; 70496; 70498; 71275; 80053; 82803; 83690; 83735; 83880; 84484; 85025; 85610; 85730; 86803; 87389; 93005; 96374; 99285; J2060; Q9967